=== PATIENT | male | born 1955 | race Caucasian/White ===

== ENCOUNTER 2021-05-05 18:29 | Emergency (ER) | payer MEDICARE ==
[~2021-05-05] VITALS: Ht 185.4 cm; Wt 79.4 kg
[2021-05-05 19:23] LABS: HEMOGLOBIN 14.3 gm/dl (14.0-17.5); RED BLOOD COUNT 4.8 M/UL (4.20-5.50); WHITE BLOOD COUNT 4.4 K/UL (4.5-11.0)
[2021-05-05 19:39] LABS: BUN/CREATININE RATIO 21 (0-10)
[2021-05-05] MEDS ORDERED: ZOFRAN4 MG PO (22:25)
== END 2021-05-05 23:30 | disposition home or self-care (01) ==
LOC: ER1 18:29
PROVIDERS: Physician Assistant Medical
DX: U07.1 COVID-19 (principal); Z23 Encounter for immunization; E11.9 Type 2 diabetes mellitus without complications; E86.0 Dehydration; E87.1 Hypo-osmolality and hyponatremia
CPT/HCPCS: 80053; 85025; 96374; 99284; J2405; M0243